=== PATIENT | female | born 1945 | race Caucasian/White ===

== ENCOUNTER → 2024-05-08 | Outpatient (CLI) | payer MEDICARE, SELFPAY ==
[2024-05-08 16:09] LABS: Cytology, Body Fluid / CSF SEE PATHOLOGY REPORT
--- NOTE | 2024-05-09 11:15 | FLU_PTH ---
PATIENT: GIA WASSERMAN LOC: [facility] U#:[id number] AGE/SX: 78/F ROOM: RE05/08/[address]: Dr. Luis Bragg MD : 1945 BED: DIS: 05/08/2024 SPEC #: [id number] RECD: 05/09/24 13:42 STATUS: NANCY REQ #: [id number] CHINEDU: 05/09/24 11:[address]: Luis Bragg DEPT: CYTOLOGY RECD BY: Sal Parisi ENTERED: 05/09/24 13:43 SP TYPE: Fluid OTHR DR: Oneyda Primary Care Phys Tissues: A - Urine B - Urine Procedures: Immunohistochemical Stains Special Stain Group II Surgery Specimen Level IV Cytospin Fluid IHC Stain ADDITIONAL HEADER OPERATION: Not noted PRE-OP DIAGNOSIS: Acute cystitis with hematuria TISSUE SUBMITTED: A- Urine for cytology, B- Urine for cytology DIAGNOSIS CYTOLOGY A. Urine: * Few atypical cells in a background of acute inflammation, favor reactive. B. Urine: * Few atypical cells in a background of acute inflammation, favor reactive. CYTOLOGY STUDY Slides are reviewed. CYTOLOGY GROSS A. Received is 2 ml of thick-cloudy fluid labeled with the patient's name and and designated per the requisition as urine. Submitted for cytology preparation. B. Received is 5 ml of thick-cloudy fluid labeled with the patient's name and and designated per the requisition as urine. Submitted for cytology preparation. Mr 05/09/2024 CPT: 48224 x2,[id number],[id number]
== END | disposition home or self-care (01) ==
LOC: LABSPEC 15:28
PROVIDERS: Referring Provider Urology; Visit Provider Urology
DX: N30.01 Acute cystitis with hematuria (principal)
CPT/HCPCS: 87086; 87088; 87186; 88108; 88305; 88313; 88341; 88342

== ENCOUNTER → 2024-05-23 | Outpatient (CLI) | payer MEDICARE, SELFPAY ==
--- NOTE | 2024-05-23 09:26 | CT_ITS ---
PROCEDURE: CT ABD/PELVIS W/WO CONTRAST 05/23/2024 REASON FOR EXAM: ACUTE CYSTITS WITH HEMATURIA TECHNIQUE: Abdomen and pelvis CT with intravenous contrast. Coronal and Sagittal reconstruction series were provided. PATIENT PREPARATION: Per protocol ORAL CONTRAST TYPE: None. CONTRAST: Isovue 370 VOLUME: 100 mL 18 gauge IV One or more dose reduction techniques were used (e.g., Automated exposure control, adjustment of the mA and/or kV according to patient size, use of iterative reconstruction technique. RADIATION DOSE SUMMARY: CTDlvol: 1160.9 mGy DLP: 2868.1 mGycm COMPARISON: None available FINDINGS: Lung bases: Lung bases are clear Liver: Unremarkable Gallbladder: Calcified gallstones within gallbladder lumen. Spleen: Unremarkable Pancreas: No main pancreatic ductal dilation. Adrenals: Hypodense lesion within the left adrenal gland measuring 2 cm. Kidneys: Kidneys are normal in size and configuration. No hydronephrosis or nephrolithiasis. Bladder: Inflammatory changes surrounding the bladder, likely representing cystitis. Reproductive Organs: Postsurgical changes of a hysterectomy. Bowel: Lack of oral contrast limits evaluation of the bowel. No small bowel or large bowel obstruction or dilation. The appendix is unremarkable. Diverticulosis within the sigmoid colon.. Circumferential thickening of the distal esophagus. Correlate with upper esophagus. Appendix: Unremarkable Lymph nodes: No lymphadenopathy. Vasculature: Unremarkable Peritoneum / Retroperitoneum: Unremarkable Bones: Unremarkable CT/CT Abd/Pelvis W/WO Contrast IMPRESSION: *Calcified gallstones within the gallbladder lumen. *Circumferential thickening of the distal esophagus. Correlate with upper endo scopy. *Inflammatory changes surrounding the urinary bladder raising concern for an ac aline cystitis. Correlate with urinalysis. *Diverticulosis within the sigmoid colon. Reading Location: [facility]
== END | disposition home or self-care (01) ==
PROVIDERS: PCP Family Medicine; Referring Provider Urology; Visit Provider Urology
DX: N30.01 Acute cystitis with hematuria (principal); R35.0 Frequency of micturition
CPT/HCPCS: 74178; Q9967

== ENCOUNTER 2024-05-26 10:57 | Day surgery (SDC) | payer MEDICARE, SELFPAY ==
[2024-05-26] VITALS (7 sets, daily range): BP systolic 107–149; BP diastolic 46–94; PULSE 71–75; RESP 16–18; TEMP 36.5–37.2; O2SAT 96–100; BMI 32.4
--- NOTE | 2024-05-26 11:14 | PRE.ANES_ITS ---
ASA Classification* ASA Classification ASA Classification: 2 Assessment & Plan Anesthesia* Anesthesia Assessment Anesthesia Assessment: Discussed sedation and/or anesthesia options, risks, benefits, and alternatives with patient/parents/legal guardian/POA. Questions invited. The patient/parents/legal guardian/POA seems to understand and agrees to proceed with anesthesia plan. Reviewed the physical assessment, medical history, allergy history and patient home medications list prior to surgery/procedure/anesthetic and documented any changes. Performed airway and anesthesia risk assessments. Anesthesia Type Anesthesia Type: General Anesthesia Focused Assessment* Airway Assessment Mouth opens: >3 cm Mallampati Score: II Focused Labs Anesthesia Preop lab: CBC WBC 8.4 K/mm3 (4.4-11.0) 09/28/11 10:34 09/28/11 RBC 4.40 M/mm3 (4.2-5.4) 09/28/11 10:34 09/28/11 Hgb 13.2 g.dL (12.0-15.0) 09/28/11 10:34 09/28/11 Hct 39.0 % (37-47) 09/28/11 10:34 09/28/11 Plt Count 280 K/mm3 (150-450) 09/28/11 10:34 09/28/11 CHEMISTRY Potassium 3.8 mmol/L (3.5-5.1) 09/28/11 10:34 09/28/11 Sodium 139 mmol/L (136-145) 09/28/11 10:34 09/28/11 BUN 11 mg/dL (7-18) 09/28/11 10:34 09/28/11 Creatinine 0.9 mg/dL (0.6-1.0) 09/28/11 10:34 09/28/11 Glucose 118 mg/dL (70-110) H 09/28/11 10:34 09/28/11 COAG Pre-Assessment Diagnosis/Proposed Procedure Planned Operative Procedure(s): Cysto, Bladder biopsy, with Retrograde Anesthesia History 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 When Was Last Pacemaker Check QUESTION #4 FULL TEXT: You/Your Family Experience fever (hyperthermia) with Anesthesia Last Oral Intake Last Oral intake: Last Oral Intake NPO since Meds taken in AM with sips of water? Meds patient instructed to take am of surgery PONV PONV - faucets assembler: PONV - faucets assembler Female Yes 05/12/24 14:58 HX of Motion Sickness No 05/12/24 14:58 HX of N/V After Surgery No 05/12/24 14:58 Non-Smoker Yes 05/12/24 14:58 Duration of Surgery greater No 05/12/24 14:58 than 60 minutes Number of Risk Factors 2 05/12/24 14:58 PONV Score Moderate Risk 05/12/24 14:58 Height & Weight Height & Weight: Anesthesia: Height & Weight Weight: 90.718 kg 05/25/24 09:39 Respiratory Assessment Respiratory Assessment - faucets assembler: Respiratory Tract Infection Hx - faucets assembler Hx Respiratory Tract Infection No 05/12/24 14:58 STOP Sleep Apnea STOP Sleep Apnea - faucets assembler: STOP Sleep Apnea - faucets assembler Hx Hypertension No 05/12/24 14:58 Hx Sleep Apnea No 05/12/24 14:58 CPAP BIPAP Do you snore loudly (louder No 05/12/24 14:58 than talking or can be heard Do you often feel tired/ No 05/12/24 14:58 fatigued/ sleepy during daytime? Has anyone observed you stop No 05/12/24 14:58 breathing during sleep? STOP Results Negative 05/12/24 14:58 QUESTION #5 FULL TEXT : Do you snore loudly (louder than talking or can be heard through closed doors)? 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 Specify any problems Hx of Preganancy in last 3 No 05/12/24 14:58 Months Nurse Filling Out Transfusion [email or web address] 05/12/24 14:58 & Questions: Date: 05/12/24 05/12/24 14:58 Time: 15:03 05/12/24 14:58 Patient unable to answer at this time (ie. confused, unrespo /Reproduction History /Reproductive History - faucets assembler: /Reproductive Hx- faucets assembler Hx Now No 05/12/24 14:58 Gestational Age (in weeks): EDC: Hx Hx Para Hx Section SAB No 05/12/24 14:58 Active Medications Active Medications: Current Medications Generic Name Dose Route Start Last Admin Trade Name Freq PRN Reason Stop Dose Admin Cefazolin Sodium 2 gm/ N/A 20 mls @ 400 mls/hr 05/26/24 14:55 IV 05/26/24 14:57 X1 ONE Sodium Chloride 1,000 mls @ 15 mls/hr 05/26/24 11:15 IV .Q48H CALEB PFSH Medical History Wears glasses Hx of fracture of right hip Arthritis Incontinence of urine High cholesterol Easy bruising Non-smoker Home Medications ?Medication ?Instructions ?Recorded ?Last Taken ?Type atorvastatin 20 mg tablet 20 mg PO QHS 05/12/24 Unknow n History folic acid 1 mg tablet 1 mg PO DAILY 05/12/24 Unkno wn History methotrexate sodium 2.5 mg tablet 17.5 mg PO QWEEK Unknown History raloxifene 60 mg tablet 60 mg PO DAILY 05/12/24 Unkn own History Allergy/AdvReac Type Severity Reaction Status Date / Time No Known Allergies Allergy Verified 05/12/24 14:44 Social History Smoking Status: Never smoker Review of Systems (Anesthesia) ROS Narrative System reviewed and no additional complaints, except as documented.
--- NOTE | 2024-05-26 11:47 | PCM.HP.STD ---
HPI - General General Date of Service: 05/26/24 Chief Complaint: Bladder tumors HPI Narrative GIA WASSERMAN, is a 78 F who presents resection of bladder tumors PFSH Medical History Wears glasses Hx of fracture of right hip Arthritis Incontinence of urine High cholesterol Easy bruising Non-smoker Home Medications ?Medication ?Instructions ?Recorded ?Last Taken ?Type atorvastatin 20 mg tablet 20 mg PO QHS 05/12/24 Unknown History folic acid 1 mg tablet 1 mg PO DAILY 05/12/24 Unknown History methotrexate sodium 2.5 mg tablet 17.5 mg PO QWEEK 05/12/24 Unknown History raloxifene 60 mg tablet 60 mg PO DAILY 05/12/24 Unknown History Allergy/AdvReac Type Severity Reaction Status Date / Time No Known Allergies Allergy Verified 05/26/24 11:42 Social History Smoking Status: Never smoker Vital Signs Vital Signs Vital Signs: Weight Weight: 90.718 kg
[2024-05-26] MEDS: 0.9% Normal Saline (1000mL) 1,000 ML 15 ML IV (11:50)
[2024-05-26] MEDS: Cefazolin 2 GM in Syringe IV (12:20)
--- NOTE | 2024-05-26 12:33 | PCM.DC ---
Discharge Instructions Diet Discharge Diet: No restrictions DC O2, CPAP, BIPAP needs Home O2 Discharge instructions: No Dressing / Incision Discharge Activity: Return to Normal Activity and May Not Drive (while taking narcotic pain medications.) Dressing / Incision Call your doctor if you observe: Fever of 101 or Higher Follow Up Care Please Follow Up With: Luis Bragg MD When: Call [phone] for an appointment Test Results: Test results from this visit will be discussed in further detail at your follow-up appointment, if applicable. Discharge Plan Admission Primary Reason for Your Visit: bladder biopsy Attending Provider: Luis Bragg Primary Care Provider: Aviva Leroy Instructions Print Language: Palestinian Discharge Orders/Prescriptions Prescriptions: Continued methotrexate sodium 2.5 mg tablet 17.5 mg PO QWEEK atorvastatin 20 mg tablet 20 mg PO QHS raloxifene 60 mg tablet 60 mg PO DAILY folic acid 1 mg tablet 1 mg PO DAILY Referrals / Follow Up: Aviva Leroy MD [Primary Care Provider] - Luis Bragg MD [Med Staff - Active Staff] - Disposition Disposition (needs filled in before D/C Order can be placed): Home, Self Care
--- NOTE | 2024-05-26 12:34 | OP.PCM_ITS ---
Operative Report (Standard) Operative Information Date of Procedure: 05/26/24 Pre-Operative Diagnosis: Recurrent bladder cystitis hematuria Post-Operative Diagnosis: The same Surgery/Procedure Performed: Cystoscopy bilateral retrograde pyelograms, cystos copy bladder biopsy and fulguration biopsy site retail marketing executive: No Type of Anesthesia: General RN Documented Start/Stop Times: Operation Date: 05/26/24 13:35 Case Time Into Pre-Op 05/26/24 11:10 Out of Pre-Op 05/26/24 12:12 Anesthesia Start 05/26/24 12:13 Into Room 05/26/24 12:13 Procedure Start 05/26/24 12:28 Procedure Start Time: 12:28 Procedure Stop Time: 12:34 Select all DRAINS/GRAFTS/IMPLANTS that apply: None Estimated Blood Loss: 0 Specimen collected: Yes Description of specimen(s) removed: Bladder biopsy Description of surgery: Patient was taken to the operating room and a smooth induction of anesthesia she was placed in dorsolithotomy position. She has been having recurrent bladder infections on cystoscopy found to have extremely inflamed bladder she did have a positive infection this was treated with antibiotics she comes back to the operating room now to do a cystoscopy and check the bladder. She underwent anesthesia was placed in dorsolithotomy position the urethrovaginal area prepped and draped in usual fashion with the bladder with a 21 Arabic rigid cystourethroscope essentially the bladder was normal she did have some mild trabeculation some inflammation of the Back of the bladder but this looked benign in appearance did not look malignant malignant looked like inflammation from infection or chronic cystitis a biopsy was taken cauterized the biopsy site I then did a retrograde pyelogram the right side was normal, and a retrograde pyelogram the left side that was normal, using a Pollick catheter and contrast about 10 cc of total contrast then drained the bladder patient anesthetic reversed taken back to PACU in good condition as he open follow-up in 2 weeks. Surgical Findings: Some inflammation of the back of the bladder consistent with cystitis left retrograde pyelogram and right retrograde filling with normal Complications Complications: No Admit VTE Documentation VTE Present on Admission: No VTE Mechan Device Prophylaxis: SCD's VTE Pharm Prophylaxis ordered?: No
--- NOTE | 2024-05-26 12:45 | PCM.POST.ANE ---
Anesthesia: Postop Eval I Current Vital Signs Temperature: 97.7 F Pulse Rate: 75 Blood Pressure: 110/87 Respiratory Rate: 18 Pulse Ox: 96 Assessment Airway patent: Yes Spontaneous unlabored respirations: Yes nausea: No Vomiting: No Anesthesia Complication: No Fluid Hydration Crystalloid volume administer (ml): 1,000 Total IV fluid infused: 1,000 Progress Note Anesthesia document: Postop Eval 1 completed: Yes
--- NOTE | 2024-05-26 13:07 | POSTOPAN2_ITS ---
Anesthesia Postop Eval I Sum Postop Eval Completion status Anesthesia document: Postop Eval 1 completed: Yes Anesthesia Postop Eval I Summary Anesthesia Postop Eval I Summary: Anesthesia Postop Eval I: Assessment Summary Airway patent Yes 05/26/24 12:45 [email or web address] Spontaneous unlabored Yes 05/26/24 12:45 [email or web address] respirations Mental status nausea No 05/26/24 12:45 [email or web address] Vomiting No 05/26/24 12:45 [email or web address] Anesthesia Postop Eval I: Fluid Summary Crystalloid volume administer 1,000 05/26/24 12:45 [email or web address] (ml) Colloids volume administered ( ml) Blood Product volume administered (ml) Total IV fluid infused 1,000 05/26/24 12:45 [email or web address] Anesthesia Postop Eval I: Summary Notes Anesthesia Complication No 05/26/24 12:45 [email or web address] Anesthesia Complication Comment: Post-operative progress note Anesthesia: Postop Eval II Evaluation Mental status: Awake Pain Level: 0 nausea: No Vomiting: No
--- NOTE | 2024-05-26 13:07 | PCM.POSTANE2 ---
Anesthesia Postop Eval I Sum Postop Eval Completion status Anesthesia document: Postop Eval 1 completed: Yes Anesthesia Postop Eval I Summary Anesthesia Postop Eval I Summary: Anesthesia Postop Eval I: Assessment Summary Airway patent Yes 05/26/24 12:45 [email or web address] Spontaneous unlabored Yes 05/26/24 12:45 [email or web address] [email or web address] respirations Mental status nausea No 05/26/24 12:45 [email or web address] Vomiting No 05/26/24 12:45 [email or web address] Anesthesia Postop Eval I: Fluid Summary Crystalloid volume administer 1,000 05/26/24 12:45 [email or web address] (ml) Colloids volume administered ( ml) Blood Product volume administered (ml) Total IV fluid infused 1,000 05/26/24 12:45 [email or web address] Anesthesia Postop Eval I: Summary Notes Anesthesia Complication No 05/26/24 12:45 [email or web address] Anesthesia Complication Comment: Post-operative progress note Anesthesia: Postop Eval II Evaluation Mental status: Awake Pain Level: 0 nausea: No Vomiting: No
--- NOTE | 2024-05-26 13:35 | BLA_PTH ---
PATIENT: GIA WASSERMAN LOC: [facility] [place] U#:[id number] AGE/SX: 78/F ROOM: RE05/26/[address]: Dr. Luis Bragg MD : 1945 BED: DIS: 05/26/2024 SPEC #: [id number] RECD: 05/26/24 14:14 STATUS: NANCY BRUCE #: [id number] CHINEDU: 05/26/24 13:[address]: Luis Bragg DEPT: SURGICAL PATHOLOGY RECD BY: Sal Parisi ENTERED: 05/26/24 14:14 SP TYPE: BLADDER BX OTHR DR: Dr. Aviva Leroy MD Tissues: A - Urinary bladder, NOS Procedures: Immunohistochemical Stains Surgery Specimen Level IV HEADER OPERATION: Cystoscopy, bladder biopsy with retrogrades PRE-OP DIAGNOSIS: Cystitis, hematuria TISSUE SUBMITTED: A- Bladder biopsy MICROSCOPIC DIAGNOSIS A. Bladder, biopsy: * Granulation tissue with active chronic inflammation. * No intact urothelium seen - see note. Note: IHC for pancytokeratin highlights a few residual urothelial cells. MICROSCOPIC DESCRIPTION Slides are reviewed. These tests were developed and their performance characteristics determined by [facility]. They may not have been cleared or approved by the U.S. Food and Drug Administration. The FDA has determined that such clearance or approval is not necessary. The above immunohistochemical/dualISH markers are ordered and reviewed by the Pathologist. GROSS DESCRIPTION A. Received in formalin in a container labeled with the patient's name, date of , and bladder biopsy is a 0.2 x 0.2 x 0.2 cm fragment of jimenez-pink soft tissue (approximately 0.1 g). Submitted in toto in A1. [facility] 06/02/2024 CPT:46702, [id number]
== END 2024-05-26 14:12 | disposition home or self-care (01) ==
LOC: SDC 10:57 → AC 10:58
PROVIDERS: PCP Family Medicine; Referring Provider Urology; Visit Provider Urology
PROC: 0TBB8ZX Excision of Bladder, Via Natural or Artificial Opening Endoscopic, Diagnostic (ICD-10-PCS; CPT 52204; principal; 2024-05-26 13:25)
DX: N30.21 Other chronic cystitis with hematuria (principal); R35.0 Frequency of micturition; N39.41 Urge incontinence; E78.00 Pure hypercholesterolemia, unspecified; Z79.899 Other long term (current) drug therapy
CPT/HCPCS: 52204; 52005; 76000; 88305; 88342; J2405

== ENCOUNTER 2024-08-24 09:16 | Day surgery (SDC) | payer MEDICARE, SELFPAY ==
[2024-08-24] VITALS (7 sets, daily range): BP systolic 92–144; BP diastolic 57–78; PULSE 64–71; RESP 14–64; TEMP 36–36.9; O2SAT 97–98; BMI 32.1
--- NOTE | 2024-08-24 09:49 | PCM.HP.STD ---
[facility] - General General Date of Admission: 08/24/24 Date of Service: 08/24/24 Chief Complaint: Abnormal CT scan [facility] Narrative GIA WASSERMAN, is a 78 F who presents for circumferential thickening of the lower esophagus seen on CT. Referral received from . She reports only occasional sinus drainage. She denies difficulty chewing and swallowing, cough, throat clearing, heartburn, reflux, nausea, emesis, abdominal bloating, cramping, excessive gas, constipation, diarrhea, hematochezia, and melena. She is admittedly forgetful, but does not understand why she's here. She has a daughter that is an RN here at [facility], Pura Burdick. She reports living at home alone with her cat. She reports eating out regularly, denies any abdominal symptoms triggered by fatty or greasy foods despite calcified stones seen within gallbladder lumen on CT. She has essential tremors, reports a cochlear implant and takes omeprazole 40mg PO daily. [facility] Medical History Rheumatoid arthritis Wears glasses Hx of fracture of right hip Arthritis Incontinence of urine High cholesterol Easy bruising Non-smoker Home Medications ?Medication ?Instructions ?Recorded ?Last Taken ?Type atorvastatin 20 mg tablet 20 mg PO QHS 05/12/24 08/02/24 History folic acid 1 mg tablet 1 mg PO DAILY 05/12/24 08/02/24 History methotrexate sodium 2.5 mg tablet 17.5 mg PO QWEEK 05/12/24 08/02/24 History raloxifene 60 mg tablet 60 mg PO DAILY 05/12/24 08/02/24 History omeprazole 40 mg capsule,delayed 40 mg PO QDAY #90 caps 06/22/24 08/02/24 Rx release gabapentin 100 mg capsule 100 mg PO BID PRN PRN pain 08/22/24 Unknown History prednisone 10 mg tablet 10 mg PO DAILY PRN RA 08/22/24 Unknown History Allergy/AdvReac Type Severity Reaction Status Date / Time No Known Allergies Allergy Verified 08/24/24 09:36 Surgical History History of bladder surgery Social History Smoking Status: Never smoker ROS Constitutional Constitutional: Denies fatigue, fever(s), poor appetite, weight gain or weight loss Gastrointestinal Gastrointestinal: Denies belching, bloating, change in bowel habits, change in stool character, chewing difficulty, coffee ground emesis, constipation, cramping, diarrhea, dyspepsia, dysphagia, early satiety, excessive flatus, fecal incontinence, heartburn, hematemesis, hematochezia, hemorrhoids, loose stools, melena, nausea, odynophagia, rectal bleeding, tenesmus, vomiting or weight changes Vital Signs Vital Signs Vital Signs: 08/24/24 09:41 08/24/24 09:41 Temperature 98.4 F Temperature Source Temporal Pulse Rate 64 Respiratory Rate 64 H Respiratory Pattern Normal Blood Pressure 144/65 H Blood Pressure Mean 91 Blood Pressure Source Monitor Blood Pressure Position Semi-Fowlers Blood Pressure Location Right Arm Pulse Ox 98 Oxygen Delivery Method Room Air Weight Weight: 193 lb Body Mass Index (BMI) 32.1 Physical Exam Const alert, oriented x3, no apparent distress and healthy appearing General Appearance: cooperative GI normal to inspection, nondistended, normoactive bowel sounds, soft to palpation, non-tender and non-distended Percussion: normal to percussion Rectal Exam: deferred Assessment & Plan Assessment/Plan (1) Esophageal abnormality: PLAN: Assessment and Plan Assessment and Plan (1) Esophageal abnormality: Status: Acute Medications: New omeprazole 40 mg PO QDAY 90 caps 0RF Plan GIA WASSERMAN, is a 78 F who presents to the office today for establishment with [facility] for circumferential thickening of the lower esophagus seen on CT. Reviewed risks and benefits of upper endoscopy. Discussed her wishes of therapy/treatment based on findings of EGD. She is unsure of what she would do if cancer was discovered. [She] would have to think about it and talk to her daughter about it. She was encouraged to discuss today's appointment with her daughter, Pura, and if either of them have questions to call me at the office. continue omeprazole 40mg PO daily schedule EGD office FU with results
[2024-08-24] MEDS: Lactated Ringers 1,000 ML 15 ML IV (10:00)
--- NOTE | 2024-08-24 10:07 | PCM.PRE.AN2 ---
ASA Classification* ASA Classification ASA Classification: 2 Assessment & Plan Anesthesia* Anesthesia Assessment Anesthesia Assessment: Discussed sedation and/or anesthesia options, risks, benefits, and alternatives with patient/parents/legal guardian/POA. Questions invited. The patient/parents/legal guardian/POA seems to understand and agrees to proceed with anesthesia plan. Reviewed the physical assessment, medical history, allergy history and patient home medications list prior to surgery/procedure/anesthetic and documented any changes. Performed airway and anesthesia risk assessments. Anesthesia Type Anesthesia Type: MAC History Source History Obtained from:: Patient and Chart Anesthesia Focused Assessment* Temperature: 98.4 F Pulse Rate: 64 Blood Pressure: 144/65 Respiratory Rate: 64 Pulse Ox: 98 Oxygen Delivery Method: Room Air Airway Assessment Mouth opens: >3 cm Mallampati Score: IV Teeth Condition: Missing (Patient is missing a couple teeth. Rest are tight.) Neck Range of motion (ROM): Limited ROM (Somewhat Decreased) Labs Anesthesia Preop lab: CBC WBC 8.4 K/mm3 (4.4-11.0) 09/28/11 10:34 09/28/11 RBC 4.40 M/mm3 (4.2-5.4) 09/28/11 10:34 09/28/11 Hgb 13.2 g.dL (12.0-15.0) 09/28/11 10:34 09/28/11 Hct 39.0 % (37-47) 09/28/11 10:34 09/28/11 Plt Count 280 K/mm3 (150-450) 09/28/11 10:34 09/28/11 CHEMISTRY Potassium 3.8 mmol/L (3.5-5.1) 09/28/11 10:34 09/28/11 Sodium 139 mmol/L (136-145) 09/28/11 10:34 09/28/11 BUN 11 mg/dL (7-18) 09/28/11 10:34 09/28/11 Creatinine 0.9 mg/dL (0.6-1.0) 09/28/11 10:34 09/28/11 Glucose 118 mg/dL (70-110) H 09/28/11 10:34 09/28/11 COAG Pre-Assessment Diagnosis/Proposed Procedure Planned Operative Procedure(s): EGD Anesthesia History Anesthesia History - denitrator: Anesthesia History - denitrator Hx Hospitalization No 08/22/24 11:24 Any Problems With Anesthesia No 08/22/24 11:24 Cholinesterase deficiency No 08/22/24 11:24 You/Your Family Experience No 08/22/24 11:24 fever (hyperthermia) with Relationship Recent Exposure to Contagious No 08/24/24 09:41 Disease Does patient have nerve No 08/22/24 11:24 stimulator Patient instructed to have device shut off --Does patient have Pacemaker No 08/24/24 09:41 or ICD? When Was Last Pacemaker Check QUESTION #4 FULL TEXT: You/Your Family Experience fever (hyperthermia) with Anesthesia Last Oral Intake Last Oral intake: Last Oral Intake NPO since 18:00 08/24/24 09:41 Meds taken in AM with sips of water? Meds patient instructed to take am of surgery PONV PONV - denitrator: PONV - denitrator Female Yes 08/22/24 11:24 HX of Motion Sickness No 08/22/24 11:24 HX of N/V After Surgery No 08/22/24 11:24 Non-Smoker Yes 08/22/24 11:24 Duration of Surgery greater No 08/22/24 11:24 than 60 minutes Number of Risk Factors 2 08/22/24 11:24 PONV Score Moderate Risk 08/22/24 11:24 Height & Weight Height & Weight: Anesthesia: Height & Weight Height 5 ft 5 in 08/24/24 09:41 Weight: 87.543 kg 08/24/24 09:41 Body Mass Index (BMI) 32.1 08/24/24 09:41 Respiratory Assessment Respiratory Assessment - denitrator: Respiratory Tract Infection Hx - denitrator Hx Respiratory Tract Infection No 08/22/24 11:24 STOP Sleep Apnea STOP Sleep Apnea - denitrator: STOP Sleep Apnea - denitrator Hx Hypertension No 08/22/24 11:24 Hx Sleep Apnea No 08/22/24 11:24 CPAP BIPAP Do you snore loudly (louder No 08/22/24 11:24 than talking or can be heard Do you often feel tired/ No 08/22/24 11:24 fatigued/ sleepy during daytime? Has anyone observed you stop No 08/22/24 11:24 breathing during sleep? STOP Results Negative 08/22/24 11:24 QUESTION #5 FULL TEXT : Do you snore loudly (louder than talking or can be heard through closed doors)? 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 Specify any problems Hx of Preganancy in last 3 No 08/22/24 11:24 Months Nurse Filling Out Transfusion VCHRISTIN 08/22/24 11:24 & Questions: Date: 08/22/24 08/22/24 11:24 Time: 11:25 08/22/24 11:24 Patient unable to answer at this time (ie. confused, unrespo /Reproduction History /Reproductive History - denitrator: /Reproductive Hx- denitrator Hx Now No 08/22/24 11:24 Gestational Age (in weeks): EDC: Hx Hx Para Hx Section SAB No 08/22/24 11:24 Active Medications Active Medications: Current Medications Generic Name Dose Route Start Last Admin Trade Name Peymanq PRN Reason Stop Dose Admin Lactated Ringer's 1,000 mls @ 15 mls/hr 08/24/24 09:30 08/24/24 10:00 IV 15 mls/hr .Q48H CALEB Administration PFSH Medical History Rheumatoid arthritis Wears glasses Arthritis Incontinence of urine High cholesterol Easy bruising Non-smoker Home Medications ?Medication ?Instructions ?Recorded ?Last Taken ?Type atorvastatin 20 mg tablet 20 mg PO QHS 05/12/24 08/02/24 History folic acid 1 mg tablet 1 mg PO DAILY 05/12/24 08/02/24 History methotrexate sodium 2.5 mg tablet 17.5 mg PO QWEEK 05/12/24 08/02/24 History raloxifene 60 mg tablet 60 mg PO DAILY 05/12/24 08/02/24 History omeprazole 40 mg capsule,delayed 40 mg PO QDAY #90 caps 06/22/24 08/02/24 Rx release gabapentin 100 mg capsule 100 mg PO BID PRN PRN pain 08/22/24 Unknown History prednisone 10 mg tablet 10 mg PO DAILY PRN RA 08/22/24 Unknown History Allergy/AdvReac Type Severity Reaction Status Date / Time No Known Allergies Allergy Verified 08/24/24 09:36 Surgical History (Updated 08/24/24 @ 10:[address] Issac Huynh MD) S/P cystoscopy Normal colonoscopy History of hysterectomy with bilateral oophorectomy Hx of fracture of right hip History of bladder surgery Social History Smoking Status: Never smoker Review of Systems (Anesthesia) ROS Narrative System reviewed and no additional complaints, except as documented.
--- NOTE | 2024-08-24 10:07 | PCM.PRE.AN2 ---
ASA Classification* ASA Classification ASA Classification: 2 Assessment & Plan Anesthesia* Anesthesia Assessment Anesthesia Assessment: Discussed sedation and/or anesthesia options, risks, benefits, and alternatives with patient/parents/legal guardian/POA. Questions invited. The patient/parents/legal guardian/POA seems to understand and agrees to proceed with anesthesia plan. Reviewed the physical assessment, medical history, allergy history and patient home medications list prior to surgery/procedure/anesthetic and documented any changes. Performed airway and anesthesia risk assessments. Anesthesia Type Anesthesia Type: MAC History Source History Obtained from:: Patient and Chart Anesthesia Focused Assessment* Temperature: 98.4 F Pulse Rate: 64 Blood Pressure: 144/65 Respiratory Rate: 64 Pulse Ox: 98 Oxygen Delivery Method: Room Air Airway Assessment Mouth opens: >3 cm Mallampati Score: IV Teeth Condition: Missing (Patient is missing a couple teeth. Rest are tight.) Neck Range of motion (ROM): Limited ROM (Somewhat Decreased) Labs Anesthesia Preop lab: CBC WBC 8.4 K/mm3 (4.4-11.0) 09/28/11 10:34 09/28/11 RBC 4.40 M/mm3 (4.2-5.4) 09/28/11 10:34 09/28/11 Hgb 13.2 g.dL (12.0-15.0) 09/28/11 10:34 09/28/11 Hct 39.0 % (37-47) 09/28/11 10:34 09/28/11 Plt Count 280 K/mm3 (150-450) 09/28/11 10:34 09/28/11 CHEMISTRY Potassium 3.8 mmol/L (3.5-5.1) 09/28/11 10:34 09/28/11 Sodium 139 mmol/L (136-145) 09/28/11 10:34 09/28/11 BUN 11 mg/dL (7-18) 09/28/11 10:34 09/28/11 Creatinine 0.9 mg/dL (0.6-1.0) 09/28/11 10:34 09/28/11 Glucose 118 mg/dL (70-110) H 09/28/11 10:34 09/28/11 COAG Pre-Assessment Diagnosis/Proposed Procedure Planned Operative Procedure(s): EGD Anesthesia History Anesthesia History - consumer credit counselor: Anesthesia History - consumer credit counselor Hx Hospitalization No 08/22/24 11:24 Any Problems With Anesthesia No 08/22/24 11:24 Cholinesterase deficiency No 08/22/24 11:24 You/Your Family Experience No 08/22/24 11:24 fever (hyperthermia) with Relationship Recent Exposure to Contagious No 08/24/24 09:41 Disease Does patient have nerve No 08/22/24 11:24 stimulator Patient instructed to have device shut off --Does patient have Pacemaker No 08/24/24 09:41 or ICD? When Was Last Pacemaker Check QUESTION #4 FULL TEXT: You/Your Family Experience fever (hyperthermia) with Anesthesia Last Oral Intake Last Oral intake: Last Oral Intake NPO since 18:00 08/24/24 09:41 Meds taken in AM with sips of water? Meds patient instructed to take am of surgery PONV PONV - consumer credit counselor: PONV - consumer credit counselor Female Yes 08/22/24 11:24 HX of Motion Sickness No 08/22/24 11:24 HX of N/V After Surgery No 08/22/24 11:24 Non-Smoker Yes 08/22/24 11:24 Duration of Surgery greater No 08/22/24 11:24 than 60 minutes Number of Risk Factors 2 08/22/24 11:24 PONV Score Moderate Risk 08/22/24 11:24 Height & Weight Height & Weight: Anesthesia: Height & Weight Height 5 ft 5 in 08/24/24 09:41 Weight: 87.543 kg 08/24/24 09:41 Body Mass Index (BMI) 32.1 08/24/24 09:41 Respiratory Assessment Respiratory Assessment - consumer credit counselor: Respiratory Tract Infection Hx - consumer credit counselor Hx Respiratory Tract Infection No 08/22/24 11:24 STOP Sleep Apnea STOP Sleep Apnea - consumer credit counselor: STOP Sleep Apnea - consumer credit counselor Hx Hypertension No 08/22/24 11:24 Hx Sleep Apnea No 08/22/24 11:24 CPAP BIPAP Do you snore loudly (louder No 08/22/24 11:24 than talking or can be heard Do you often feel tired/ No 08/22/24 11:24 fatigued/ sleepy during daytime? Has anyone observed you stop No 08/22/24 11:24 breathing during sleep? STOP Results Negative 08/22/24 11:24 QUESTION #5 FULL TEXT : Do you snore loudly (louder than talking or can be heard through closed doors)? 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 Specify any problems Hx of Preganancy in last 3 No 08/22/24 11:24 Months Nurse Filling Out Transfusion VCHRISTIN 08/22/24 11:24 & Questions: Date: 08/22/24 08/22/24 11:24 Time: 11:25 08/22/24 11:24 Patient unable to answer at this time (ie. confused, unrespo /Reproduction History /Reproductive History - consumer credit counselor: /Reproductive Hx- consumer credit counselor Hx Now No 08/22/24 11:24 Gestational Age (in weeks): EDC: Hx Hx Para Hx Section SAB No 08/22/24 11:24 Active Medications Active Medications: Current Medications Generic Name Dose Route Start Last Admin Trade Name Peymanq PRN Reason Stop Dose Admin Lactated Ringer's 1,000 mls @ 15 mls/hr 08/24/24 09:30 08/24/24 10:00 IV 15 mls/hr .Q48H CALEB Administration PFSH Medical History Rheumatoid arthritis Wears glasses Arthritis Incontinence of urine High cholesterol Easy bruising Non-smoker Home Medications ?Medication ?Instructions ?Recorded ?Last Taken ?Type atorvastatin 20 mg tablet 20 mg PO QHS 05/12/24 08/02/24 History folic acid 1 mg tablet 1 mg PO DAILY 05/12/24 08/02/24 History methotrexate sodium 2.5 mg tablet 17.5 mg PO QWEEK 05/12/24 08/02/24 History raloxifene 60 mg tablet 60 mg PO DAILY 05/12/24 08/02/24 History omeprazole 40 mg capsule,delayed 40 mg PO QDAY #90 caps 06/22/24 08/02/24 Rx release gabapentin 100 mg capsule 100 mg PO BID PRN PRN pain 08/22/24 Unknown History prednisone 10 mg tablet 10 mg PO DAILY PRN RA 08/22/24 Unknown History Allergy/AdvReac Type Severity Reaction Status Date / Time No Known Allergies Allergy Verified 08/24/24 09:36 Surgical History (Updated 08/24/24 @ 10:[address] Issac Huynh MD) S/P cystoscopy Normal colonoscopy History of hysterectomy with bilateral oophorectomy Hx of fracture of right hip History of bladder surgery Social History Smoking Status: Never smoker Review of Systems (Anesthesia) ROS Narrative System reviewed and no additional complaints, except as documented.
--- NOTE | 2024-08-24 10:30 | EGD_PTH ---
PATIENT: GIA WASSERMAN LOC: EN U#:[id number] AGE/SX: 78/F ROOM: RE08/24/[address]: Dr. Rashaun Vitale DO : 1945 BED: DIS: 08/24/2024 SPEC #: [id number] RECD: 08/24/24 12:28 STATUS: NANCY REQ #: [id number] CHINEDU: 08/24/24 10:[address]: Rashaun Vitale DEPT: SURGICAL PATHOLOGY RECD BY: Sal Parisi ENTERED: 08/24/24 14:38 SP TYPE: EGD BIOPSY ZAIRE DR: Dr. Aviva Leroy MD Tissues: A - Esophagus, NOS Procedures: Immunohistochemical Stains Surgery Specimen Level IV HEADER OPERATION: EGD PRE-OP DIAGNOSIS: Esophageal abnormality TISSUE SUBMITTED: A- Distal esophagus biopsy MICROSCOPIC DIAGNOSIS A. Distal esophagus, biopsy: * Benign squamous epithelium * Oxyntocardiac type mucosa with chronic active inflammation and foveolar hyperplasia, negative for goblet cells (See note) Note: An immunostain for Helicobacter pylori organisms is in progress and will be reported as an addendum. MICROSCOPIC DESCRIPTION Slides are reviewed. GROSS DESCRIPTION A. Received in fixative is one container labeled with the patient's name and designated Distal esophagus biopsy. The specimen consists of multiple irregular fragments of light jimenez soft tissue that in aggregate measure 1 x 0.7 x 0.2 cm. The specimen is totally submitted in one cassette. Keila 08/24/2024 CPT:76313 ,[id number] ADDENDUM ADDENDUM ADDENDUM ADDENDUM ADDENDUM ADDENDUM ADDENDUM ADDENDUM ADDENDUM ADDENDUM 09/13/2024 14:25 ADDENDUM 09/13/2024 14:25 ADDENDUM 09/13/2024 14:25 ADDENDUM 09/13/2024 14:25 ADDENDUM 09/13/2024 14:25 The immunostain for Helicobacter pylori organisms is negative All matched controls reacted appropriately. These tests were developed and their performance characteristics determined by [facility]. They may not have been cleared or approved by the U.S. Food and Drug Administration. The FDA has determined that such clearance or approval is not necessary. The above immunohistochemical/dualISH markers are viewed by the Pathologist.
--- NOTE | 2024-08-24 10:30 | EGD_PTH ---
PATIENT: GIA WASSERMAN LOC: EN U#:[id number] AGE/SX: 78/F ROOM: RE08/24/[address]: Dr. Rashaun Vitale DO : 1945 BED: DIS: 08/24/2024 SPEC #: [id number] RECD: 08/24/24 12:28 STATUS: NANCY REQ #: [id number] CHINEDU: 08/24/24 10:[address]: Rashaun Vitale DEPT: SURGICAL PATHOLOGY RECD BY: Sal Parisi ENTERED: 08/24/24 14:38 SP TYPE: EGD BIOPSY ZAIRE DR: Dr. Aviva Leroy MD Tissues: A - Esophagus, NOS Procedures: Immunohistochemical Stains Surgery Specimen Level IV HEADER OPERATION: EGD PRE-OP DIAGNOSIS: Esophageal abnormality TISSUE SUBMITTED: A- Distal esophagus biopsy MICROSCOPIC DIAGNOSIS A. Distal esophagus, biopsy: * Benign squamous epithelium * Oxyntocardiac type mucosa with chronic active inflammation and foveolar hyperplasia, negative for goblet cells (See note) Note: An immunostain for Helicobacter pylori organisms is in progress and will be reported as an addendum. MICROSCOPIC DESCRIPTION Slides are reviewed. GROSS DESCRIPTION A. Received in fixative is one container labeled with the patient's name and designated Distal esophagus biopsy. The specimen consists of multiple irregular fragments of light jimenez soft tissue that in aggregate measure 1 x 0.7 x 0.2 cm. The specimen is totally submitted in one cassette. Keila 08/24/2024 CPT:[id number] ,[id number] ADDENDUM ADDENDUM ADDENDUM ADDENDUM ADDENDUM ADDENDUM ADDENDUM ADDENDUM ADDENDUM ADDENDUM 09/13/2024 14:25 ADDENDUM 09/13/2024 14:25 ADDENDUM 09/13/2024 14:25 ADDENDUM 09/13/2024 14:25 ADDENDUM 09/13/2024 14:25 The immunostain for Helicobacter pylori organisms is negative All matched controls reacted appropriately. These tests were developed and their performance characteristics determined by [facility]. They may not have been cleared or approved by the U.S. Food and Drug Administration. The FDA has determined that such clearance or approval is not necessary. The above immunohistochemical/dualISH markers are viewed by the Pathologist.
--- NOTE | 2024-08-24 11:27 | OP.CCLET_ITS ---
08/24/2024 Aviva Leroy Md Re : Upper GI endoscopy procedure for Lorena Lan Dear Rad This procedure was performed on August. My impressions and recommendations are as follows: Impressions : - Moderate Schatzki ring. - LA Grade B reflux esophagitis with no bleeding. Biopsied. - No gross lesions in the entire stomach. - No gross lesions in the entire examined duodenum. Recommendations : - Discharge patient to home. - Resume previous diet. - Continue present medications. My findings are described in the full procedure note, which is enclosed. If I can be of further assistance, please feel free to contact me at . Sincerely, Rashaun Vitale, 08/24/2024 11:27:03 AM This report has been signed electronically.
--- NOTE | 2024-08-24 11:27 | OP.EGD_ITS ---
Patient Name: Lorena Lan Procedure Date: 08/24/2024 11:14 AM Date of : 1945 Age: 78 Procedure: Upper GI endoscopy Indications: Dysphagia, Abnormal CT of the GI tract Providers: Rashaun Vitale DO Medicines: Monitored Anesthesia Care Patient Profile: This is a 78 year old female. Refer to note in patient chart for documentation of history and physical. Patient has symptoms of dysphagia with solids. Complications: No immediate complications. Procedure: Pre-Anesthesia Assessment: - Prior to the procedure, a History and Physical was performed, and patient medications and allergies were reviewed. The patient is competent. The risks and benefits of the procedure and the sedation options and risks were discussed with the patient. All questions were answered and informed consent was obtained. Patient identification and proposed procedure were verified by the physician in the pre-procedure area. Mental Status Examination: alert and oriented. Airway Examination: normal oropharyngeal airway and neck mobility. Respiratory Examination: clear to auscultation. CV Examination: normal. Prophylactic Antibiotics: The patient does not require prophylactic antibiotics. Prior Anticoagulants: The patient has taken no anticoagulant or antiplatelet agents except for NSAID medication. ASA Grade Assessment: II - A patient with mild systemic disease. After reviewing the risks and benefits, the patient was deemed in satisfactory condition to undergo the procedure. The anesthesia plan was to use monitored anesthesia care (MAC). Immediately prior to administration of medications, the patient was re-assessed for adequacy to receive sedatives. The heart rate, respiratory rate, oxygen saturations, blood pressure, adequacy of pulmonary ventilation, and response to care were monitored throughout the procedure. The physical status of the patient was re-assessed after the procedure. After obtaining informed consent, the endoscope was passed under direct vision. Throughout the procedure, the patient's blood pressure, pulse, and oxygen saturations were monitored continuously. The Endoscope was introduced through the mouth, and advanced to the second part of duodenum. The upper GI endoscopy was accomplished without difficulty. The patient tolerated the procedure well. Scope In: 11:16:59 AM Scope Out: 11:21:42 AM Total Procedure Duration Time 0 hours 4 minutes 43 seconds Findings: A moderate Schatzki ring was found at the gastroesophageal junction. LA Grade B (one or more mucosal breaks greater than 5 mm, not extending between the tops of two mucosal folds) esophagitis with no bleeding was found 38 to 40 cm from the incisors. Biopsies were taken with a cold forceps for histology. Verification of patient identification for the specimen was done. Estimated blood loss was minimal. No gross lesions were noted in the entire examined stomach. No gross lesions were noted in the entire examined duodenum. Impression: - Moderate Schatzki ring. - LA Grade B reflux esophagitis with no bleeding. Biopsied. - No gross lesions in the entire stomach. - No gross lesions in the entire examined duodenum. Recommendation: - Discharge patient to home. - Resume previous diet. - Continue present medications. Procedure Code(s): --- Professional --- 24917, Esophagogastroduodenoscopy, flexible, transoral; with biopsy, single or multiple CPT copyright 2021 [employer]. All rights reserved. The codes documented in this report are preliminary and upon manager underwriting review may be revised to meet current compliance requirements. Rashanu Vitale DO 08/24/2024 11:27:03 AM This report has been signed electronically. Number of Addenda: 0 Note Initiated On: 08/24/2024 11:14 AM
--- NOTE | 2024-08-24 11:27 | OP.EGD_ITS ---
Patient Name: Lorena Lan Procedure Date: 08/24/2024 11:14 AM Date of : 1945 Age: 78 Procedure: Upper GI endoscopy Indications: Dysphagia, Abnormal CT of the GI tract Providers: Rashaun Vitale DO Medicines: Monitored Anesthesia Care Patient Profile: This is a 78 year old female. Refer to note in patient chart for documentation of history and physical. Patient has symptoms of dysphagia with solids. Complications: No immediate complications. Procedure: Pre-Anesthesia Assessment: - Prior to the procedure, a History and Physical was performed, and patient medications and allergies were reviewed. The patient is competent. The risks and benefits of the procedure and the sedation options and risks were discussed with the patient. All questions were answered and informed consent was obtained. Patient identification and proposed procedure were verified by the physician in the pre-procedure area. Mental Status Examination: alert and oriented. Airway Examination: normal oropharyngeal airway and neck mobility. Respiratory Examination: clear to auscultation. CV Examination: normal. Prophylactic Antibiotics: The patient does not require prophylactic antibiotics. Prior Anticoagulants: The patient has taken no anticoagulant or antiplatelet agents except for NSAID medication. ASA Grade Assessment: II - A patient with mild systemic disease. After reviewing the risks and benefits, the patient was deemed in satisfactory condition to undergo the procedure. The anesthesia plan was to use monitored anesthesia care (MAC). Immediately prior to administration of medications, the patient was re-assessed for adequacy to receive sedatives. The heart rate, respiratory rate, oxygen saturations, blood pressure, adequacy of pulmonary ventilation, and response to care were monitored throughout the procedure. The physical status of the patient was re-assessed after the procedure. After obtaining informed consent, the endoscope was passed under direct vision. Throughout the procedure, the patient's blood pressure, pulse, and oxygen saturations were monitored continuously. The Endoscope was introduced through the mouth, and advanced to the second part of duodenum. The upper GI endoscopy was accomplished without difficulty. The patient tolerated the procedure well. Scope In: 11:16:59 AM Scope Out: 11:21:42 AM Total Procedure Duration Time 0 hours 4 minutes 43 seconds Findings: A moderate Schatzki ring was found at the gastroesophageal junction. LA Grade B (one or more mucosal breaks greater than 5 mm, not extending between the tops of two mucosal folds) esophagitis with no bleeding was found 38 to 40 cm from the incisors. Biopsies were taken with a cold forceps for histology. Verification of patient identification for the specimen was done. Estimated blood loss was minimal. No gross lesions were noted in the entire examined stomach. No gross lesions were noted in the entire examined duodenum. Impression: - Moderate Schatzki ring. - LA Grade B reflux esophagitis with no bleeding. Biopsied. - No gross lesions in the entire stomach. - No gross lesions in the entire examined duodenum. Recommendation: - Discharge patient to home. - Resume previous diet. - Continue present medications. Procedure Code(s): --- Professional --- 81038, Esophagogastroduodenoscopy, flexible, transoral; with biopsy, single or multiple CPT copyright 2021 [employer]. All rights reserved. The codes documented in this report are preliminary and upon logistics management specialist review may be revised to meet current compliance requirements. Rashaun Vitale DO 08/24/2024 11:27:03 AM This report has been signed electronically. Number of Addenda: 0 Note Initiated On: 08/24/2024 11:14 AM
--- NOTE | 2024-08-24 11:34 | PCM.POST.ANE ---
Anesthesia: Postop Eval I Current Vital Signs Temperature: 98 F Pulse Rate: 71 Blood Pressure: 135/57 Respiratory Rate: 16 Pulse Ox: 98 Oxygen Delivery Method: Room Air Assessment Airway patent: Yes Spontaneous unlabored respirations: Yes Mental status: Awake and Calm nausea: No Vomiting: No Anesthesia Complication: No Fluid Hydration Crystalloid volume administer (ml): 300 Total IV fluid infused: 300 Progress Note Anesthesia document: Postop Eval 1 completed: Yes
--- NOTE | 2024-08-24 14:36 | PCM.POSTANE2 ---
Anesthesia Postop Eval I Sum Postop Eval Completion status Anesthesia document: Postop Eval 1 completed: Yes Anesthesia Postop Eval I Summary Anesthesia Postop Eval I Summary: Anesthesia Postop Eval I: Assessment Summary Airway patent Yes 08/24/24 11:35 [email or web address] Spontaneous unlabored Yes 08/24/24 11:35 [email or web address] respirations Mental status Awake,Calm 08/24/24 11:35 [email or web address] nausea No 08/24/24 11:35 [email or web address] Vomiting No 08/24/24 11:35 [email or web address] Anesthesia Postop Eval I: Fluid Summary Crystalloid volume administer 300 08/24/24 11:35 [email or web address] (ml) Colloids volume administered ( ml) Blood Product volume administered (ml) Total IV fluid infused 300 08/24/24 11:35 [email or web address] Anesthesia Postop Eval I: Summary Notes Anesthesia Complication No 08/24/24 11:35 [email or web address] Anesthesia Complication Comment: Post-operative progress note Anesthesia: Postop Eval II Evaluation Mental status: Awake and Calm Pain Level: 0 nausea: No Vomiting: No Complications Anesthesia Complication: No
== END 2024-08-24 12:05 | disposition home or self-care (01) ==
LOC: EN 09:17 → AC 09:19
PROVIDERS: PCP Family Medicine; Referring Provider Family Medicine; Visit Provider Internal Medicine Gastroenterology
PROC: 0DJ08ZZ Inspection of Upper Intestinal Tract, Via Natural or Artificial Opening Endoscopic (ICD-10-PCS; CPT 43235; principal; 2024-08-24 10:25)
DX: K22.2 Esophageal obstruction (principal); M06.9 Rheumatoid arthritis, unspecified; K20.90 Esophagitis, unspecified without bleeding; R13.10 Dysphagia, unspecified; G25.0 Essential tremor; E78.00 Pure hypercholesterolemia, unspecified; R93.3 Abnormal findings on diagnostic imaging of other parts of digestive tract; Z96.21 Cochlear implant status; Z79.899 Other long term (current) drug therapy
CPT/HCPCS: 43239; 88305; J2405